=== PATIENT | male | born 1935 | race Caucasian/White ===

== ENCOUNTER 2018-10-04 05:56 | Inpatient (IN) | payer MEDICARE, BC ==
[~2018-10-04] VITALS: Ht 180.3 cm; Wt 69.2 kg
[2018-10-04] MEDS ORDERED: DILTIAZEM 5 MG/ML, 5ML IVPush STA ×2 (06:16→06:33)
[2018-10-04] MEDS ORDERED: ASPIRIN 81 MG TABLET CHEW ONE (06:26)
[2018-10-04] MEDS ORDERED: DILTIAZEM 5 MG/ML, 5ML ONE ×2 (06:27→06:36)
[2018-10-04] MEDS ORDERED: ASPIRIN 81 MG TABLET CHEW PO ONE (06:30)
[2018-10-04] MEDS ORDERED: SODIUM CHLORIDE FLUSH 10ML SYR IVF ONE (06:30)
[2018-10-04] MEDS ORDERED: SODIUM CHLORIDE 0.9% 1,000ML IVBOLUS ONE (06:30)
[2018-10-04] MEDS ORDERED: DILTIAZEM 125 MG in DEXTROSE 5% 100 ML IV SCH (06:33)
[2018-10-04 06:40] LABS: BASOPHILS # (AUTO) 0.02 x10^3/uL (0-0.1); BASOPHILS % (AUTO) 0 % (0-1); EOSINOPHILS # (AUTO) 0.05 x10^3/uL (0-0.4); EOSINOPHILS % (AUTO) 1 % (1-7); LYMPHOCYTES # (AUTO) 2.78 x10^3/uL (1-3.4); LYMPHOCYTES % (AUTO) 27 % (22-44); MD NO; MEAN CORPUSCULAR HEMOGLOBIN 33.6 pg (27.5-34.5); MEAN CORPUSCULAR HGB CONC 34.2 g/dL (33.2-36.2); MEAN CORPUSCULAR VOLUME 98.1 fL (81-97); MEAN PLATELET VOLUME 8.2 fL (7.4-10.4); MONOCYTES # (AUTO) 0.94 x10^3/uL (0.2-0.8); MONOCYTES % (AUTO) 9 % (2-9); NEUTROPHILS % (AUTO) 64 % (42-75); PLATELET COUNT 263 x10^3/uL (130-400); RED BLOOD COUNT 3.58 x10^6/uL (4.38-5.82); RED CELL DISTRIBUTION WIDTH 13.2 % (9.4-14.8)
[2018-10-04 06:45] LABS: ALANINE AMINOTRANSFERASE 16 U/L (12-78); ALBUMIN 3.8 g/dL (3.4-5.0); ANION GAP 12 mmol/L (5-15); CALCIUM 9.2 mg/dL (8.5-10.1); CHLORIDE 107 mmol/L (98-107); INTERNATIONAL NORMALIZED RATIO 1.06 (0.93-1.1)
[2018-10-04 06:51] LABS: ALKALINE PHOSPHATASE 66 U/L (45-117); BILIRUBIN,TOTAL 0.6 mg/dL (0.2-1.0); CREATININE 1.56 mg/dL (0.7-1.3); T4 (THYROXINE) 11.8 mcg/dL (4.5-12.1); TOTAL PROTEIN 7.4 g/dL (6.4-8.2); TROPONIN I < 0.015 ng/mL (0.000-0.045)
[2018-10-04] MEDS ORDERED: BENZONATATE 100 MG CAPSULE PO ONE (07:30)
[2018-10-04] MEDS ORDERED: METF500T17 PO (08:16)
[2018-10-04] MEDS ORDERED: CLOP75TA52 PO (08:16)
[2018-10-04] MEDS ORDERED: LISI-167 PO (08:16)
[2018-10-04] MEDS ORDERED: MAGN400T7 PO (08:17)
[2018-10-04] MEDS ORDERED: FOLI-17 PO (08:17)
[2018-10-04] MEDS ORDERED: TAMS0.4C2 PO (08:18)
[2018-10-04] MEDS ORDERED: DILT180C9 PO (08:18)
[2018-10-04] MEDS ORDERED: FERR324T5 PO (08:18)
[2018-10-04] MEDS ORDERED: ASPI-515 PO (08:19)
[2018-10-04] MEDS ORDERED: PANT20TA3 PO (08:19)
[2018-10-04] MEDS ORDERED: BENZONATATE 100 MG CAPSULE ONE (08:42)
[2018-10-04 09:26] VITALS: BP 134/70
[2018-10-04] MEDS ORDERED: APIX5TAB PO (10:13)
[2018-10-04 10:44] VITALS: BP 110/62
[2018-10-04] MEDS: DILTIAZEM 125 MG in SODIUM CHLORIDE 0.9% 100 ML IV SCH ×2 (10:47→15:34)
[2018-10-04] MEDS ORDERED: GUAIFENESIN/DM 200-20MG, 10ML UDC PO PRN (11:30)
[2018-10-04] MEDS ORDERED: BISACODYL 10 MG SUPP PR PRN (11:30)
[2018-10-04] MEDS ORDERED: ONDANSETRON ODT 4 MG PO PRN (11:30)
[2018-10-04] MEDS ORDERED: NITROGLYCERIN 0.4 MG BOTTLE (25 TABS) SL PRN (11:30)
[2018-10-04] MEDS ORDERED: hydrALAzine 20 MG/ML, 1ML IVPush PRN (11:30)
[2018-10-04] MEDS ORDERED: morphine SULFATE 10 MG/ML, 1ML IVPush PRN (11:30)
[2018-10-04] MEDS ORDERED: ACETAMINOPHEN 325 MG TABLET PO PRN (11:30)
[2018-10-04] MEDS ORDERED: DOCUSATE 100 MG CAPSULE PO PRN (11:30)
[2018-10-04] MEDS ORDERED: NITROGLYCERIN 0.4 MG/SPRAY SL PRN (11:30)
[2018-10-04] MEDS ORDERED: ONDANSETRON 2MG/ML, 2ML IVPush PRN (11:30)
[2018-10-04] MEDS ORDERED: LABETALOL 5MG/ML, 20ML IVPush PRN (11:30)
[2018-10-04 12:18] LABS: FREE T4 (FREE THYROXINE) 1.45 ng/dL (0.76-1.46); TROPONIN I < 0.015 ng/mL (0.000-0.045)
[2018-10-04] MEDS ORDERED: MAGNESIUM OXIDE 400 MG TABLET PO ONE (12:30)
[2018-10-04] MEDS ORDERED: APIXABAN 2.5 MG TABLET PO SCH ×2 (12:30→21:00)
[2018-10-04 12:38] LABS: HEMOGLOBIN A1C 6.4 % (4.2-6.3)
[2018-10-04 12:52] VITALS: BP 116/70
[2018-10-04] MEDS: DILTIAZEM CD 180 MG CAP.ER.24H PO SCH (12:59)
[2018-10-04 13:34] LABS: MICROSCOPIC NOT IND
[2018-10-04 13:44] LABS: CULTURE INDICATED? NO
[2018-10-04] MEDS: APIXABAN 2.5 MG TABLET PO SCH ×2 (15:12→20:03)
[2018-10-04 17:25] VITALS: BP 114/72
[2018-10-04] MEDS: FUROSEMIDE 20 MG/2 ML IV SCH (17:28)
[2018-10-04 17:47] LABS: TROPONIN I < 0.015 ng/mL (0.000-0.045)
[2018-10-04 20:19] VITALS: BP 122/75
[2018-10-04 23:05] VITALS: BP 100/68
[2018-10-05] MEDS: DILTIAZEM 125 MG in SODIUM CHLORIDE 0.9% 100 ML IV SCH ×2 (00:32→10:35)
[2018-10-05 01:17] VITALS: BP 113/65
[2018-10-05 05:08] LABS: BASOPHILS # (AUTO) 0.04 x10^3/uL (0-0.1); BASOPHILS % (AUTO) 1 % (0-1); EOSINOPHILS # (AUTO) 0.13 x10^3/uL (0-0.4); EOSINOPHILS % (AUTO) 2 % (1-7); LYMPHOCYTES # (AUTO) 2.08 x10^3/uL (1-3.4); LYMPHOCYTES % (AUTO) 24 % (22-44); MD NO; MEAN CORPUSCULAR HEMOGLOBIN 33.5 pg (27.5-34.5); MEAN CORPUSCULAR HGB CONC 34.3 g/dL (33.2-36.2); MEAN CORPUSCULAR VOLUME 97.6 fL (81-97); MEAN PLATELET VOLUME 7.9 fL (7.4-10.4); MONOCYTES # (AUTO) 0.88 x10^3/uL (0.2-0.8); MONOCYTES % (AUTO) 10 % (2-9); NEUTROPHILS # (AUTO) 5.45 x10^3/uL (1.8-6.8); NEUTROPHILS % (AUTO) 63 % (42-75); PLATELET COUNT 247 x10^3/uL (130-400); RED BLOOD COUNT 3.27 x10^6/uL (4.38-5.82); RED CELL DISTRIBUTION WIDTH 13.4 % (9.4-14.8)
[2018-10-05 05:17] LABS: ANION GAP 7 mmol/L (5-15); CALCIUM 8.7 mg/dL (8.5-10.1); CHLORIDE 106 mmol/L (98-107)
[2018-10-05 05:23] LABS: CHOL/HDL RATIO 7.6; CHOLESTEROL, TOTAL 242 mg/dL (140-239); CREATININE 1.27 mg/dL (0.7-1.3); HDL CHOL % 13 % (26-37); HDL CHOLESTEROL (DIRECT) 32 mg/dL (40-60); LDL CHOLESTEROL,CALCULATED 172 mg/dL (54-169); LDL/HDL RATIO 5.4 (0.5-3.0); TRIGLYCERIDES 191 mg/dL (50-200); VLDL CHOLESTEROL 38 mg/dL (0-25)
[2018-10-05 07:22] VITALS: BP 107/68
[2018-10-05] MEDS: FUROSEMIDE 20 MG/2 ML IV SCH ×2 (07:30→17:02)
[2018-10-05] MEDS ORDERED: DILTIAZEM CD 180 MG CAP.ER.24H PO SCH (09:00)
[2018-10-05] MEDS: LISINOPRIL 20 MG TABLET PO SCH (09:00)
[2018-10-05] MEDS: TAMSULOSIN 0.4 MG CAP.ER.24H PO SCH (09:19)
[2018-10-05] MEDS: APIXABAN 2.5 MG TABLET PO SCH ×2 (09:19→20:51)
[2018-10-05] MEDS: DILTIAZEM CD 180 MG CAP.ER.24H PO SCH (09:19)
[2018-10-05] MEDS: CLOPIDOGREL 75 MG TABLET PO SCH (09:20)
[2018-10-05] MEDS: PANTOPRAZOLE 20MG TABLET PO SCH (09:20)
[2018-10-05] MEDS: FERROUS SULFATE 325 MG TABLET PO SCH (09:21)
[2018-10-05] MEDS: FOLIC ACID 1 MG TABLET PO SCH (09:21)
[2018-10-05] MEDS: MAGNESIUM OXIDE 400 MG TABLET PO SCH (09:21)
[2018-10-05] MEDS ORDERED: PROPOFOL 10 MG/ML, 20ML ONE (12:20)
[2018-10-05 15:09] VITALS: BP 102/65
[2018-10-05 15:33] VITALS: BP 134/69
[2018-10-05 17:00] VITALS: BP 118/63
[2018-10-05 18:34] VITALS: BP 124/62
[2018-10-06 01:30] VITALS: BP 113/69
[2018-10-06 08:05] VITALS: BP 148/86
[2018-10-06] MEDS: FOLIC ACID 1 MG TABLET PO SCH (08:10)
[2018-10-06] MEDS: PANTOPRAZOLE 20MG TABLET PO SCH (08:10)
[2018-10-06] MEDS: DILTIAZEM CD 180 MG CAP.ER.24H PO SCH (08:10)
[2018-10-06] MEDS: CLOPIDOGREL 75 MG TABLET PO SCH (08:10)
[2018-10-06] MEDS: TAMSULOSIN 0.4 MG CAP.ER.24H PO SCH (08:10)
[2018-10-06] MEDS: LISINOPRIL 20 MG TABLET PO SCH (08:10)
[2018-10-06] MEDS: FERROUS SULFATE 325 MG TABLET PO SCH (08:10)
[2018-10-06] MEDS: FUROSEMIDE 20 MG/2 ML IV SCH ×2 (08:11→18:37)
[2018-10-06] MEDS: MAGNESIUM OXIDE 400 MG TABLET PO SCH (08:11)
[2018-10-06] MEDS: APIXABAN 2.5 MG TABLET PO SCH ×2 (08:11→21:23)
[2018-10-06 11:57] VITALS: BP 100/78
[2018-10-06] MEDS ORDERED: AMIODARONE 900 MG in DEXTROSE 5% 482 ML IV PRN (12:00)
[2018-10-06] MEDS ORDERED: AMIODARONE 150 MG in DEXTROSE 5% 100 ML IV ONE (12:00)
[2018-10-06] MEDS ORDERED: FILTER 0.22 MICRON FOR AMIODARONE IV PRN (12:00)
[2018-10-06 16:18] VITALS: BP 118/81
[2018-10-06 20:46] VITALS: BP 101/63
[2018-10-06] MEDS: ATORVASTATIN 80 MG TABLET PO SCH (21:22)
[2018-10-07 01:50] VITALS: BP 101/65
[2018-10-07 08:00] VITALS: BP 124/81
[2018-10-07] MEDS: MAGNESIUM OXIDE 400 MG TABLET PO SCH (08:26)
[2018-10-07] MEDS: TAMSULOSIN 0.4 MG CAP.ER.24H PO SCH (08:26)
[2018-10-07] MEDS: AMIODARONE 200 MG TABLET PO SCH ×2 (08:26→20:17)
[2018-10-07] MEDS: FOLIC ACID 1 MG TABLET PO SCH (08:26)
[2018-10-07] MEDS: FERROUS SULFATE 325 MG TABLET PO SCH (08:26)
[2018-10-07] MEDS: APIXABAN 2.5 MG TABLET PO SCH ×2 (08:26→20:17)
[2018-10-07] MEDS: CLOPIDOGREL 75 MG TABLET PO SCH (08:26)
[2018-10-07] MEDS: FUROSEMIDE 20 MG/2 ML IV SCH ×3 (08:27→17:59)
[2018-10-07] MEDS: PANTOPRAZOLE 20MG TABLET PO SCH (08:27)
[2018-10-07] MEDS: LISINOPRIL 20 MG TABLET PO SCH (08:27)
[2018-10-07 14:00] VITALS: BP 124/75
[2018-10-07] MEDS: ATORVASTATIN 80 MG TABLET PO SCH (20:17)
[2018-10-07 21:52] VITALS: BP 128/77
[2018-10-08 02:17] VITALS: BP 98/63
[2018-10-08 07:39] VITALS: BP 125/73
[2018-10-08] MEDS: APIXABAN 2.5 MG TABLET PO SCH (08:40)
[2018-10-08] MEDS: FOLIC ACID 1 MG TABLET PO SCH (08:41)
[2018-10-08] MEDS: PANTOPRAZOLE 20MG TABLET PO SCH (08:41)
[2018-10-08] MEDS: FERROUS SULFATE 325 MG TABLET PO SCH (08:41)
[2018-10-08] MEDS: TAMSULOSIN 0.4 MG CAP.ER.24H PO SCH (08:41)
[2018-10-08] MEDS: CLOPIDOGREL 75 MG TABLET PO SCH (08:41)
[2018-10-08] MEDS: MAGNESIUM OXIDE 400 MG TABLET PO SCH (08:41)
[2018-10-08] MEDS: AMIODARONE 200 MG TABLET PO SCH (08:41)
[2018-10-08] MEDS: FUROSEMIDE 20 MG/2 ML IV SCH (08:42)
[2018-10-08] MEDS: LISINOPRIL 20 MG TABLET PO SCH (08:42)
[2018-10-08] MEDS ORDERED: AMIO200T42 PO (10:00)
[2018-10-08] MEDS ORDERED: ATOR-2 PO (10:00)
[2018-10-08] MEDS ORDERED: APIX2.5T PO (10:00)
[2018-10-08] MEDS ORDERED: FERR-51 PO (10:00)
== END 2018-10-08 12:35 | disposition home or self-care (01) | DRG 308 ==
LOC: ED 06:52 → EDIP 07:55 → 5SO 09:28 → DCLOUNGE 10-08 12:18
PROVIDERS: ADMIT Family Medicine; ATTEND Hospitalist
PROC: 5A2204Z Restoration of Cardiac Rhythm, Single (ICD-10-PCS; principal; 2018-10-05 12:15)
DX: I48.0 Paroxysmal atrial fibrillation (principal); N17.0 Acute kidney failure with tubular necrosis; D64.9 Anemia, unspecified; E11.65 Type 2 diabetes mellitus with hyperglycemia; E78.5 Hyperlipidemia, unspecified; E83.42 Hypomagnesemia; I10 Essential (primary) hypertension; I25.10 Atherosclerotic heart disease of native coronary artery without angina pectoris; N40.0 Benign prostatic hyperplasia without lower urinary tract symptoms; Z87.891 Personal history of nicotine dependence; Z95.1 Presence of aortocoronary bypass graft; Z95.2 Presence of prosthetic heart valve; Z95.5 Presence of coronary angioplasty implant and graft; Z86.73 Personal history of transient ischemic attack (TIA), and cerebral infarction without residual deficits; Z79.82 Long term (current) use of aspirin; Z79.899 Other long term (current) drug therapy
CPT/HCPCS: 36415; 71045; 80048; 80053; 80061; 81003; 82962; 83036; 83735; 83880; 84100; 84436; 84439; 84443; 84484; 85025; 85610; 85730; 90656; 92960; 93005; 93306; 99285; G0378; J2704; J0282; J1940; J7030; J7060